=== PATIENT | female | born 1940 | race Caucasian/White ===

== ENCOUNTER → 2019-10-14 | Outpatient (CLI) | payer OTHER | END | disposition home or self-care (01) | LOC: OIH 12:54 | PROVIDERS: ATTEND Internal Medicine Cardiovascular Disease | DX: Z13.6 Encounter for screening for cardiovascular disorders (principal) | CPT/HCPCS: 75571 ==

== ENCOUNTER 2020-05-12 07:12 | Day surgery (SDC) | payer OTHER ==
[2020-05-10 13:01] LABS: BASOPHILS % (AUTO) 0.8 % (0.0-5.0); EOSINOPHILS % (AUTO) 2.1 % (0.0-8.0); MEAN CORPUSCULAR HEMOGLOBIN 27.4 pg (27.0-33.0); MEAN CORPUSCULAR HGB CONC 32.3 g/dL (32.0-36.0); MEAN CORPUSCULAR VOLUME 84.7 fL (79-99); MONOCYTES % (AUTO) 7.3 % (3.0-13.0); NEUTROPHILS % (AUTO) 61.5 % (40.0-77.0); PLATELET COUNT (AUTO) 279 K/uL (130-400); RED BLOOD CELL COUNT(AUTO) 4.13 MIL/uL (4.00-5.50); RED CELL DISTRIBUTION WIDTH 13.2 % (11.0-15.5); WHITE BLOOD COUNT (AUTO) 7.5 K/uL (4.8-10.8)
[2020-05-10 13:12] LABS: CREATININE 0.8 mg/dL (0.5-1.5)
[2020-05-10 13:13] LABS: APPEARANCE,URINE Clear (CLEAR); BILIRUBIN,URINE Negative (NEGATIVE); COLOR,URINE Yellow (YELLOW); GLUCOSE, URINE (UA) Negative (NEGATIVE); KETONES,URINE Trace mg/dL (NEGATIVE); LEUKOCYTE ESTERASE ,URINE Small (NEGATIVE); NITRATE,URINE Negative (NEGATIVE); OCCULT BLOOD,URINE Trace (NEGATIVE); PROTEIN,URINE Negative (NEGATIVE)
[2020-05-10 13:16] LABS: INR 0.95 (0.85-1.15); PROTHROMBIN TIME 10.3 SEC (9.6-11.6)
[2020-05-10 13:26] LABS: BACTERIA,URINE Rare /HPF (None Seen); SQUAMOUS EPITHELIAL CELL,UR Rare /HPF (0-2); WBC,URINE 0-1 /HPF (0-1)
[2020-05-10 14:35] LABS: PARTIAL THROMBOPLASTIN TIME 26.3 SEC (26.3-35.5)
--- NOTE | 2020-05-11 11:59 | NUR ---
REPORTED UA OF SMALL LEUKEST AND RBC 2-5 TO JEANNE MENDENHALL NO NEW ORDERS.
[2020-05-12] VITALS (11 sets, daily range): BP systolic 118–138; BP diastolic 52–70
[~2020-05-12] VITALS: Ht 154.9 cm; Wt 53.8 kg
[~2020-05-12 07:12] MED LIST: ASPI-1443 PO; BIOT5000 PO; CALCIUM,MAG,ZINC PO; CHRM1TAB PO; CITA10TA7 PO; CYAN50008 PO; MELO-108 PO; METF-444 PO; METO25TA3 PO; PANT40TA PO; SODIUM CHLORIDE 0.9% 500ML 500 ML IV SCH
[2020-05-12] MEDS ORDERED: SODIUM CHLORIDE 0.9% 1000ML 1,000 ML IV ONE (08:37)
[2020-05-12 08:56] LABS: T4 (THYROXINE) 10.3 ug/dL (4.7-13.3); THYROID STIMULATING HORMONE 4.86 uIU/mL (0.36-3.74)
--- NOTE | 2020-05-12 13:55 | NUR ---
JEANNE Langley NOTIFIED OF TSH LEVELS.NO NEW ORDERS
--- NOTE | 2020-05-12 14:30 | NUR ---
PT STABLE. OFFERS NO COMPLAINTS. I HAVE KEPT PT INFORMED OF DELAYS THROUGHOUT THE DAY
[2020-05-12] MEDS ORDERED: SODIUM BICARB 50MEQ 50ML VIAL 50 ML ONE (14:46)
[2020-05-12] MEDS ORDERED: NITROGLYCERIN 2 MG/VIAL VIAL IV ONE (14:47)
[2020-05-12] MEDS ORDERED: NICARDIPINE HCL 25 MG/10 ML ML IV ONE (14:47)
[2020-05-12] MEDS ORDERED: MEPERIDINE-PF 25 MG/ML SYG ONE (14:47)
[2020-05-12] MEDS ORDERED: IOHEXOL 350 MG/ML 100ML INFUS..BTL IV ONE (14:47)
[2020-05-12] MEDS ORDERED: LIDOCAINE HCL 2% 20ML ONE (14:47)
[2020-05-12] MEDS ORDERED: IOHEXOL-350 50ML VIAL IV ONE (14:47)
[2020-05-12] MEDS ORDERED: HEPARIN SODIUM 1000UNIT/ML 10ML VIAL ONE (14:47)
[2020-05-12] MEDS ORDERED: MIDAZOLAM HCL 1 MG/ML 2ML VIAL ONE (15:15)
[2020-05-12] MEDS ORDERED: SODIUM CHLORIDE 0.9% 1000ML 1,000 ML IV SCH (16:15)
--- NOTE | 2020-05-12 16:20 | NUR ---
Report received Report received from THOM Bynum regarding pt. Pt awake and alert, denies any c/o. Right groin site with no hematoma, no swelling noted. No tenderness noted. Instructed pt regarding bed rest orders. Verbalized understanding. Dinner tray was ordered and assisted pt in eating. Tolerated meal well with no n/v. Addendum: 05/12/20 at 2204 by MAGDA JAMES RN RN IV fluids continued at 150ml/hr as per order
--- NOTE | 2020-05-12 16:20 | NUR ---
PT ARRIVES FROM [facility]. PT ENDORSED TO MAGDA TOMAS. RT GROIN WITH N HEMATOMA/BLEEDING. NO CHEST PAIN OR SOB. PT PLACED ON THERMOMETER TESTER
--- NOTE | 2020-05-12 20:40 | NUR ---
D/C Pt prepared for transfer. Verbal and written instructions given to pt and friend with copy of prescription. Instructed to call Friday morning for f/u appointment time. Office closed at time order was received to f/u. Assisted pt in dressing. No bleeding noted to puncture site. Remains free from tenderness, swelling. Pt was then taken to private vehicle via w/c in no distress. Very appreciative of care.
== END 2020-05-12 20:50 ==
LOC: DAH 07:12
PROVIDERS: ATTEND Internal Medicine Cardiovascular Disease
DX: I25.118 Atherosclerotic heart disease of native coronary artery with other forms of angina pectoris (principal); K21.9 Gastro-esophageal reflux disease without esophagitis; Z86.73 Personal history of transient ischemic attack (TIA), and cerebral infarction without residual deficits; Z90.49 Acquired absence of other specified parts of digestive tract; Z90.710 Acquired absence of both cervix and uterus; Z79.01 Long term (current) use of anticoagulants; Z79.82 Long term (current) use of aspirin; Z79.899 Other long term (current) drug therapy
CPT/HCPCS: 36415 ×2; 71045; 80048; 81001; 82948 ×2; 83735; 84436; 84443; 84481; 85025; 85610; 85730; 93005; 93458; A4215; A4216; A4221; A4222; A4223 ×3; A4606; A4663; C1760; C1894; J1644; J2175; J2250; J3490 ×3; J7030; Q9965; Q9967 ×2; 99156; 99157